=== PATIENT | male | born 1980 | race Caucasian/White ===

== ENCOUNTER 2017-04-12 23:11 | Emergency (ER) | payer MEDICAID, OTHER ==
[2017-04-12 23:27] VITALS: BP 130/86; PULSE 63; RESP 16; TEMP 98.4; O2SAT 96
[2017-04-12] MEDS ORDERED: PENICILLIN VK 250MG PREPACK#6 BTL TAKEHOME ONE (23:38)
[2017-04-12] MEDS ORDERED: HYDROCOD/APAP 5/325 PREPACK#6 BTL TAKEHOME ONE (23:38)
--- NOTE | 2017-04-12 23:41 | EDPHY ---
H & P Time Seen by Provider: 04/12/17 23:17 HPI/ROS: 36-year-old male presents complaining of left lower molar pain. His been bothering from him for about 4 days he has been taking ibuprofen without relief No drainage Review of systems As per HPI General no fever no chills no weakness HEENT no eye pain no eye discharge. No eye redness, no sore throat Respiratory no cough, no shortness of breath Cardiac no chest pain, no peripheral edema GI no abdominal pain, no diarrhea, no constipation, no nausea, no vomiting no flank pain, no hematuria, no dysuria Musculoskeletal no myalgias, no joint pain Heme no easy bruising, no easy bleeding Endo no polyuria, no polydipsia Skin no rashes, no pruritus Neuro no syncope, no dizziness, no headaches Psych is no suicidal ideation, no homicidal ideation Past Medical/Surgical History: Noncontributory Social History: Denies alcohol or drug use Smoking Status: Never smoked Physical Exam: 36-year-old male Alert and oriented in no acute distress nontoxic appearance, afebrile Atraumatic normocephalic Oropharynx Left posterior most molar with severe dental caries with circumferential erythema no drainage no swelling Neck no JVD, no adenopathy Lungs clear to auscultation, no respiratory distress Heart regular rate and rhythm Extremities no cyanosis clubbing edema Constitutional: Initial Vital Signs Temperature (C) 36.9 C 04/12/17 23:24 Heart Rate 63 04/12/17 23:24 Respiratory Rate 16 04/12/17 23:24 Blood Pressure 130/86 H 04/12/17 23:24 O2 Sat (%) 96 04/12/17 23:24 O2 Delivery Mode Room Air Allergies/Adverse Reactions: No Known Allergies Allergy (Unverified 04/12/17 23:24) Home Medications: Medication Instructions Recorded Hydrocodone/Acetaminophen [[place] 1 - 2 tab PO Q6H PRN #8 tab 04/12/17 5/325 (*)] Ibuprofen 04/12/17 Penicillin V Potassium [Penicillin 500 mg PO QID #28 tab 04/12/17 VK] Medical Decision Making ED Course/Re-evaluation: Patient seen and evaluated for dental pain Exam consistent with severe caries cannot rule out periapical abscess Impression Severe caries, cannot rule out periapical abscess Plan Penicillin VK Short-term Rx for [place] Follow-up with dentist as soon as possible - Data Points Medications Given: Discontinued Medications Hydrocodone Bitart/Acetaminophen ([place] 5/325mg Prepack#6) 1 btl TAKEHOME EDNOW ONE Stop: 04/12/17 23:39 Last Admin: 04/12/17 23:41 Dose: 1 btl Penicillin V Potassium (Pen Vk 250 Mg Prepack#6) 1 btl TAKEHOME EDNOW ONE PRN Reason: Protocol Stop: 04/12/17 23:39 Last Admin: 04/12/17 23:41 Dose: 1 btl Departure - Departure Disposition: Home, Routine, Self-Care Clinical Impression: Dental caries, Periapical abscess Condition: Good Instructions: Penicillin V (By mouth), Hydrocodone/Acetaminophen (By mouth), Dental Abscess (ED) Referrals: NONE *PRIMARY CARE P,. [Primary Care Provider] - As per Instructions Prescriptions: Hydrocodone/Acetaminophen [[place] 5/325 (*)] 1 - 2 tab PO Q6H PRN #8 tab PRN Reason: Pain, Moderate Penicillin V Potassium [Penicillin VK] 500 mg PO QID #28 tab
== END 2017-04-12 23:53 | disposition home or self-care (01) ==
LOC: CED 23:11
DX: K04.7 Periapical abscess without sinus (principal); K02.9 Dental caries, unspecified

== ENCOUNTER 2018-02-28 00:29 | Emergency (ER) | payer SELFPAY ==
[2018-02-28 00:37] VITALS: BP 100/68
[2018-02-28] MEDS ORDERED: predniSONE 20 MG TAB PO ONE (00:41)
[2018-02-28] MEDS ORDERED: ALBUTEROL INH PREPACK MDI TAKEHOME ONE (00:42)
[2018-02-28] MEDS ORDERED: IPRATROPIUM/ALBUTEROL 3 ML DEYVIAL IH ONE (00:42)
--- NOTE | 2018-02-28 00:51 | EDPHY ---
H & P Time Seen by Provider: 02/28/18 00:44 HPI/ROS: CC: short of breath HPI: This 37-year-old male with past medical history of asthma presents to emergency department tonight with complaints of shortness of breath and wheezing progressing over the last 2 days. He has been staying with his mother and her and they have a few pets and he feels that this exacerbation was due to allergies. He has had asthma since he was about 8 years old but [place] He has not had to use any asthma medications in quite some time and does not have an inhaler. He has had a runny nose but denies recent illness. No fever, chills, headache, sore throat, ear pain, productive cough, or chest pain. REVIEW OF SYSTEMS: Constitutional: No fever, no chills. Eyes: No discharge. ENT: No sore throat. Respiratory: No cough.. Cardiac: No chest pain, no palpitations. Gastrointestinal: No abdominal pain, no vomiting. Musculoskeletal: No back pain. Skin: No rashes. Neurological: No headache. Past Medical/Surgical History: PMH: asthma PSH: denied NKDA Meds: none PCP: none Social History: Denies use of tobacco products. Lives with mother and her . Smoking Status: Never smoked Physical Exam: General Appearance: Alert, mild distress. Eyes: Pupils equal and round no pallor or injection. ENT, Mouth: Mucous membranes are moist. No posterior oropharyngeal erythema or exudate. Uvula midline. Respiratory: There are no retractions, lungs have expiratory wheeze bilateral. Cardiovascular: Regular rate and rhythm. Gastrointestinal: Abdomen is soft and nontender, no masses, bowel sounds normal. Neurological: Awake and alert, sensory and motor exams grossly normal. Skin: Warm and dry, no rashes. Musculoskeletal: Neck is supple nontender. Extremities are symmetrical, full range of motion. Psychiatric: Patient is oriented X 3, there is no agitation. DIFFERENTIAL DIAGNOSIS: After history and physical exam differential diagnosis was considered for but not limited to: acute exacerbation of asthma, seasonal allergies, pet allergies, URI Constitutional: Initial Vital Signs Temperature (C) 98.1 F 02/28/18 00:35 Heart Rate 67 02/28/18 00:35 Respiratory Rate 18 02/28/18 00:35 Blood Pressure 100/68 02/28/18 00:35 O2 Sat (%) 96 02/28/18 00:35 O2 Delivery Mode Room Air Allergies/Adverse Reactions: No Known Allergies Allergy (Unverified 04/12/17 23:24) Home Medications: Medication Instructions Recorded Montelukast Sodium [Singulair 10 10 mg PO DAILY@1800 #30 tab 02/28/18 mg (*)] RX: Albuterol [Proventil Inhaler 2 puffs IH Q4 PRN 30 Days #1 mdi 02/28/18 HFA (*)] RX: predniSONE 50 mg PO DAILY 7 Days #7 tablet 02/28/18 Medical Decision Making ED Course/Re-evaluation: The patient was seen and examined. Vital signs were reviewed and normal although I did see the patient's oxygen saturations go down to 94% while conducting the history. He was given an a DuoNeb and prednisone 60 mg. The patients repeat lung exam was much improved with only a scant rare wheeze. He was feeling well enough to go home. He was given an albuterol meter dose inhaler with spacer and instructed on its use. He was given a prescription for prednisone, another inhaler, and Singulair. He was given a referral to a local clinic for follow-up. He was instructed to return to the emergency room immediately if symptoms return or worsen in any way. Instructions reviewed at length. All questions answered. Patient declined use of a hourly sign language interpreter. Departure - Departure Disposition: Home, Routine, Self-Care Clinical Impression: Allergic rhinitis due to animal (cat) (dog) hair and dander Exacerbation of asthma Qualifiers: Asthma severity: mild Asthma persistence: intermittent Qualified Code(s): J45.21 - Mild intermittent asthma with (acute) exacerbation Condition: Good Instructions: Asthma (ED), Allergies (ED), Albuterol (By breathing) Additional Instructions: Take the medications as directed. Avoid contact with pets or other known allergens. Establish care with a primary care provider for follow up and future medical needs. Return to the ER immediately if symptoms return or worsen in any way. Referrals: [facility],. [Clinic] - As per Instructions Prescriptions: RX: Albuterol [Proventil Inhaler HFA (*)] 2 puffs IH Q4 PRN 30 Days #1 mdi PRN Reason: short of breath, wheezing Montelukast Sodium [Singulair 10 mg (*)] 10 mg PO DAILY@1800 #30 tab RX: predniSONE 50 mg PO DAILY 7 Days #7 tablet Print Language: Persian
== END 2018-02-28 01:18 | disposition home or self-care (01) ==
LOC: CED 00:29
DX: J45.21 Mild intermittent asthma with (acute) exacerbation (principal); J30.81 Allergic rhinitis due to animal (cat) (dog) hair and dander
CPT/HCPCS: J7512